=== PATIENT | male | born 1965 | race Caucasian/White ===

== ENCOUNTER → 2020-12-15 | Outpatient (CLI) | payer MEDICARE, SELFPAY, OTHER ==
[~2020-12-15] MED LIST: CYCLOBENZAPRINE10 MG PO
== END ==
LOC: HEART CORB 13:30
DX: I50.9 Heart failure, unspecified (principal); I42.8 Other cardiomyopathies; R93.1 Abnormal findings on diagnostic imaging of heart and coronary circulation; I51.7 Cardiomegaly
CPT/HCPCS: 93306

== ENCOUNTER 2021-01-06 19:56 | Emergency (ER) | payer MEDICARE, OTHER ==
[2021-01-07] MEDS ORDERED: CYCLOBENZAPRINE10 MG PO (02:10)
== END 2021-01-07 02:16 | disposition home or self-care (01) ==
LOC: ER1 19:56
DX: M51.36 Other intervertebral disc degeneration, lumbar region (principal); I25.10 Atherosclerotic heart disease of native coronary artery without angina pectoris; J44.9 Chronic obstructive pulmonary disease, unspecified
CPT/HCPCS: 72131; 81001; 99284

== ENCOUNTER → 2021-04-20 | Outpatient (CLI) | payer MEDICARE | LOC: HEART CORB 04-13 10:30 | DX: R07.2 Precordial pain (principal); I11.0 Hypertensive heart disease with heart failure; I50.22 Chronic systolic (congestive) heart failure | CPT/HCPCS: 78452; A9502 ==

== ENCOUNTER → 2021-04-22 | Outpatient (CLI) | payer MEDICARE | LOC: HEART CORB 09:34 | DX: R07.2 Precordial pain (principal); I50.22 Chronic systolic (congestive) heart failure | CPT/HCPCS: J2785 ==

== ENCOUNTER → 2021-10-29 | Outpatient (CLI) | payer MEDICARE ==
[~2021-10-29] MED LIST changes: +CLARITIN10 MG PO; +COREG3.125 MG PO; +FISH OIL 1,0001 EAC8 PO; +FUROSEMIDE40 MG PO; +INCRUSE ELLI62.5 MCG INH; +LIPITOR20 MG PO; +LISINOPRIL5 MG PO; +LOW DOSE ASPIRI81 MG PO; +OMEPRAZOLE20 M1 PO; +POTASSIUM CHLO10 ME1 PO; +PROVENTIL HFA6.7 GM INH; +SINGULAIR10 MG PO; +SYMBICORT 16010.2 GM INH; +VITAMIN C500 M4 PO; +VITAMIN D31250 MCG PO
[2021-10-29 11:01] LABS: BUN/CREATININE RATIO 26 (0-10)
== END ==
LOC: OPSV2 09:31
PROVIDERS: Anesthesiology
DX: Z01.818 Encounter for other preprocedural examination (principal); G56.01 Carpal tunnel syndrome, right upper limb; Z95.0 Presence of cardiac pacemaker
CPT/HCPCS: 80048; 93005

== ENCOUNTER → 2021-11-05 | Day surgery (SDC) | payer MEDICARE ==
[~2021-11-05] MED LIST changes: +HYDROCODON-ACE1 EAC4 PO
== END | disposition home or self-care (01) ==
LOC: OR 05:47
PROVIDERS: Orthopaedic Surgery
PROC: 01N50ZZ Release Median Nerve, Open Approach (ICD-10-PCS; principal; 2021-11-05 08:45)
DX: G56.01 Carpal tunnel syndrome, right upper limb (principal); I11.0 Hypertensive heart disease with heart failure; I50.22 Chronic systolic (congestive) heart failure; E78.5 Hyperlipidemia, unspecified; J44.9 Chronic obstructive pulmonary disease, unspecified; K21.9 Gastro-esophageal reflux disease without esophagitis; I42.0 Dilated cardiomyopathy; I42.8 Other cardiomyopathies; G47.30 Sleep apnea, unspecified; E66.01 Morbid (severe) obesity due to excess calories; Z68.43 Body mass index [BMI] 50.0-59.9, adult; Z20.822 Contact with and (suspected) exposure to COVID-19; Z95.810 Presence of automatic (implantable) cardiac defibrillator; Z79.899 Other long term (current) drug therapy
CPT/HCPCS: J1100; J2001; J2250; J2405; J2704; J3010; J7120